=== PATIENT | female | born 1950 | race Caucasian/White ===

== ENCOUNTER → 2017-01-17 07:26 | Outpatient (CLI) | payer MEDICARE, OTHER ==
[2013-12-29 17:01] VITALS: BMI 27.7
[~2017-01-17 07:26] MED LIST: BABY ASPIRIN81 MG PO; CENTRUM SILVER1 TA2 PO; FLAGYL500 MG PO; GLUCOPHAGE500 MG PO; HUMALOG MI100 UNITS/; LAMICTAL25 MG PO; LANTUS SOL100 UNIT/1 SC; LEVAQUIN250 MG PO; LOPRESSOR25 MG PO; NEXIUM40 MG PO; NOVOLOG100 U/M1 SQ; OXYCODONE HCL5 MG PO; PROTONIX40 MG PO; TRILIPIX45 MG PO; VITAMIN D5000 UNIT OR
== END | disposition home or self-care (01) ==
LOC: D.CT 07:26
DX: R10.9 Unspecified abdominal pain (principal)

== ENCOUNTER → 2017-08-20 12:55 | Outpatient (CLI) | payer MEDICARE, OTHER ==
[2013-12-29 17:01] VITALS: BMI 27.7
== END | disposition home or self-care (01) ==
LOC: D.MAMMO 12:55
DX: Z12.31 Encounter for screening mammogram for malignant neoplasm of breast (principal)

== ENCOUNTER → 2017-11-06 16:57 | Outpatient (CLI) | payer MEDICARE, OTHER ==
[2013-12-29 17:01] VITALS: BMI 27.7
== END | disposition home or self-care (01) ==
LOC: D.MAMMO 10:30
DX: R92.8 Other abnormal and inconclusive findings on diagnostic imaging of breast (principal)

== ENCOUNTER 2018-04-01 13:13 | Inpatient (IN) | payer MEDICARE, OTHER ==
[~2018-04-01] VITALS: Ht 172.7 cm; Wt 83.0 kg
--- NOTE | ~2018-04-01 | HP ---
PATIENT: DAY SWAIN MEDICAL RECORD: [id number] ACCOUNT: [id number] LOCATION:[id number] : 46 ADMISSION DATE: 04/01/18 HISTORY AND PHYSICAL EXAMINATION REASON FOR ADMISSION: Right knee and left wrist pain. HISTORY OF PRESENT ILLNESS: The patient is a 68-year-old female with metabolic syndrome who fell at [employer] this afternoon onto her knee. She had no syncopal symptoms. Sustained immediate pain to her left wrist and right knee. The knee swelled immediately. She came to Emergency Room for this reason. Examination showed displaced fracture of the right patella, and a left nondisplaced radial head fracture. She has been seeing by Dr. Kenney from orthopedics and he recommends admission for medical clearance prior to ORIF of the patella. She denies syncope and otherwise she has felt well recently. PAST MEDICAL HISTORY: Remotely a lower GI bleed for ileitis, diverticulosis, metabolic syndrome, anemia, erosive gastritis, hyperlipidemia, coronary artery disease post-CABG grafting times 3 vessels 11/2012, hyperlipidemia, diabetic neuropathy. PAST SURGICAL HISTORY: Three-vessel CABG in 2012, lap cholecystectomy, left reverse shoulder repair for rotator cuff in 2013, history of depression and anemia. OTHER SURGICAL HISTORY: Hysterectomy, oophorectomy. FAMILY HISTORY: Father had diabetes and CAD. Mother with CAD and stroke syndrome. One sister with hypernephroma and hypertension. SOCIAL HISTORY: Lifelong nonsmoker, nondrinker. She is , retired. MEDICATIONS: NovoLog FlexPen per sliding scale, metformin 500 mg 2 tabs b.i.d., Toujeo SoloSTAR 25 units subQ in the morning and 50 units in the evening, Protonix 40 mg p.o. every morning, ranitidine 150 mg p.o. at bedtime, Nitrostat 0.4 sublingual p.r.n. chest pain, metoprolol succinate ER 25 mg p.o. b.i.d., multivitamin 1 daily. ALLERGIES: SHELLFISH. REVIEW OF SYSTEMS: CONSTITUTIONAL: No fever, fatigue, or weight change. HEENT: No recent new visual change, sinus congestion, sore throat or hearing deficit. RESPIRATORY: No SOB or cough. CARDIAC: No exertional rest chest pain, claudication, edema or palpitations. GASTROINTESTINAL: No nausea, vomiting, change in stools or blood per rectum. GENITOURINARY: Mild incontinence. No dysuria. GYNECOLOGIC: No vaginal bleeding. MUSCULOSKELETAL: Significant pain in her right patellar currently in her left wrist with any movement. She has lumbago intermittently without sciatica. INTEGUMENT: No rash or itching. PSYCHIATRIC: Denies depressed mood. PHYSICAL EXAMINATION: HISTORY AND PHYSICAL [id number] DAY SWAIN VITAL SIGNS: Her temperature is 97.6 Fahrenheit, blood pressure 130/48 with sat of 90% on room air, respiratory rate is 18. Height is 5 feet 8 inches. Weight is 183 pounds. GENERAL: The patient is alert and oriented. HEENT: Eyes are clear. Sclerae nonicteric. Oropharynx unremarkable. NECK: No bruits or masses. CHEST: Clear. Chest wall shows healed sternotomy scar. There is a scar over her left shoulder anteriorly. HEART: Regular rate without MGR. PMI appropriate. ABDOMEN: Soft, nontender: No organomegaly. GENITOURINARY: Deferred. EXTREMITIES: She has marked swelling and edema over the right patella with deformity. It hurts with any knee flexion. NEUROVASCULAR: Intact. Her left wrist shows soft tissue swelling over the distal radial head with neurovascularly intact. NEUROLOGIC: Oriented x3. Cranial nerves intact. Gait is not tested. Sensory; she has decreased sensation to touch and pinprick in bottoms of both feet. LABORATORY AND DIAGNOSTIC DATA: White count is 8600 with normal diff, H&H is 14.6 and 41.4 respectively. Chemistry shows a sodium of 137, potassium 4.1, BUN of 19, glucose of 281 nonfasting. Liver functions are AST and ALT mildly elevated at 94 and 133 respectively. INR is 1.03. EKG shows sinus rhythm, no acute changes. Imaging of the right knee shows displaced patellar fracture. Left breast shows nondisplaced radial head fracture. Portable chest x-ray shows postoperative changes in the left shoulder, otherwise unremarkable. ASSESSMENT: 1. Fall sustaining a displaced and comminuted right patellar fracture and left radial head fracture. 2. Diabetes mellitus, fair control. 3. History of atherosclerotic heart disease, clinically asymptomatic. 4. Hyperlipidemia. 5. Hypertension. 6. Hypothyroidism. 7. History of ileitis with GI bleeding, on anti-inflammatories. PLAN: The patient is admitted. Orthopedic consult. She is medically stable currently for intended surgery in the morning. Case discussed with the patient, family and Dr. Kenney. TRANSINT:[id number] Voice Confirmation ID: [id number] DOCUMENT ID: [id number] KENDELL FIGUEROA MD at 2215 CC: [id number] DICTATION DATE: 04/01/182147 STEREO OPERATOR: 04/01/182248 DIS IN 04/04/18 [place] [id number] [place] [id number]
[2018-04-01 16:20] VITALS: BP 130/48
[2018-04-01 16:35] LABS: BASOPHILS 0.5 % (0-2); EOSINOPHILS 1.2 % (0-7); HEMATOCRIT 41.4 % (36.0-48.0); HEMOGLOBIN 14.6 g/dL (12-16); IMMATURE GRANULOCYTES 0.1 % (0-5); LYMPHOCYTES 25.5 % (15-50); MCH 32.9 pg (26.0-34.0); MCHC 35.3 g/dL (31.0-37.0); MCV 93.2 fL (80.0-100.0); MEAN PLATELET VOLUME 13.1 fL (7.4-10.4); MONOCYTES 6.8 % (2-11); NEUTROPHILS 65.9 % (40-80); PLATELET COUNT 147 10x3/uL (130-400); RBC 4.44 10x6/uL (4.00-5.40); WBC 8.6 10x3/uL (4.8-10.8)
[2018-04-01 16:51] LABS: INR 1.03 (0.85-1.17); PROTIME 13.1 SECONDS (11.6-15.0)
[2018-04-01 17:02] LABS: ALBUMIN 3.7 g/dL (3.4-5.0); ALKALINE PHOSPHATASE 106 U/L (46-116); ALT (SGPT) 133 U/L (10-68); BILIRUBIN - TOTAL 0.84 mg/dL (0.2-1.3); CALC OSMOLALITY 285 mosm/kg (275-300); CALCIUM 9.2 mg/dL (8.5-10.1); CARBON DIOXIDE 28.4 mmol/L (21.0-32.0); CHLORIDE - SERUM 100 mmol/L (98-107); CREATININE - SERUM 0.8 mg/dL (0.6-1.3); POTASSIUM - SERUM 4.1 mmol/L (3.5-5.1); PROTEIN - SERUM 8.7 g/dL (6.4-8.2); SODIUM 137 mmol/L (136-145); UREA NITROGEN 19 mg/dL (7-18); eGFR NON AFRICAN AMERICAN 75 mL/min (90-120)
[2018-04-01 17:10] LABS: GLUCOSE 281 mg/dL (74-106)
[2018-04-01 19:27] VITALS: BP 167/82
[2018-04-02] VITALS (14 sets, daily range): BP systolic 137–198; BP diastolic 68–101; Ht 172.7 cm; Wt 83.0 kg
[2018-04-02 05:07] LABS: BASOPHILS 0.4 % (0-2); EOSINOPHILS 0.9 % (0-7); HEMATOCRIT 37.4 % (36.0-48.0); IMMATURE GRANULOCYTES 0.3 % (0-5); LYMPHOCYTES 31.6 % (15-50); MCH 32.3 pg (26.0-34.0); MCHC 34.8 g/dL (31.0-37.0); MEAN PLATELET VOLUME 12.7 fL (7.4-10.4); MONOCYTES 10.3 % (2-11); NEUTROPHILS 56.5 % (40-80); PLATELET COUNT 143 10x3/uL (130-400); RBC 4.02 10x6/uL (4.00-5.40); RDW 12.1 % (11.5-14.5)
[2018-04-02 05:32] LABS: CALC OSMOLALITY 277 mosm/kg (275-300); CALCIUM 8.7 mg/dL (8.5-10.1); CARBON DIOXIDE 29.1 mmol/L (21.0-32.0); CHLORIDE - SERUM 102 mmol/L (98-107); CREATININE - SERUM 0.6 mg/dL (0.6-1.3); POTASSIUM - SERUM 3.6 mmol/L (3.5-5.1); SODIUM 137 mmol/L (136-145); UREA NITROGEN 15 mg/dL (7-18); eGFR NON AFRICAN AMERICAN > 90 mL/min (90-120)
[2018-04-02 05:45] LABS: GLUCOSE 159 mg/dL (74-106)
[2018-04-02 07:43] LABS: APPEARANCE CLEAR (CLEAR); COLOR YELLOW (YELLOW)
[2018-04-02 07:44] LABS: BILIRUBIN NEGATIVE (NEGATIVE); GLUCOSE NEGATIVE (NEGATIVE); KETONE NEGATIVE (NEGATIVE); NITRITE NEGATIVE (NEGATIVE); PROTEIN NEGATIVE (NEGATIVE); SPECIFIC GRAVITY 1.015 (1.005-1.020); UROBILINOGEN NORMAL (NORMAL)
[2018-04-03 03:42] VITALS: BP 144/66
[2018-04-03 05:54] LABS: BASOPHILS 0.2 % (0-2); EOSINOPHILS 0.7 % (0-7); HEMOGLOBIN 12.5 g/dL (12-16); IMMATURE GRANULOCYTES 0.1 % (0-5); MCH 32.4 pg (26.0-34.0); MCHC 34.7 g/dL (31.0-37.0); MCV 93.3 fL (80.0-100.0); MEAN PLATELET VOLUME 12.7 fL (7.4-10.4); MONOCYTES 13.8 % (2-11); NEUTROPHILS 58.2 % (40-80); PLATELET COUNT 125 10x3/uL (130-400); RBC 3.86 10x6/uL (4.00-5.40); RDW 12.1 % (11.5-14.5); WBC 8.8 10x3/uL (4.8-10.8)
[2018-04-03 06:06] LABS: CALC OSMOLALITY 274 mosm/kg (275-300); CARBON DIOXIDE 29.9 mmol/L (21.0-32.0); CHLORIDE - SERUM 101 mmol/L (98-107); CREATININE - SERUM 0.6 mg/dL (0.6-1.3); GLUCOSE 168 mg/dL (74-106); POTASSIUM - SERUM 3.5 mmol/L (3.5-5.1); SODIUM 136 mmol/L (136-145); eGFR NON AFRICAN AMERICAN > 90 mL/min (90-120)
[2018-04-03 06:14] LABS: UREA NITROGEN 9 mg/dL (7-18)
[2018-04-03 08:43] VITALS: BP 183/85
[2018-04-03 19:40] VITALS: BP 168/77
[2018-04-03 23:35] VITALS: BP 155/77
[2018-04-04 04:12] VITALS: BP 184/82
[2018-04-04 06:24] LABS: BASOPHILS 0.4 % (0-2); EOSINOPHILS 1.3 % (0-7); HEMATOCRIT 34.2 % (36.0-48.0); HEMOGLOBIN 12.1 g/dL (12-16); IMMATURE GRANULOCYTES 0.3 % (0-5); LYMPHOCYTES 28.2 % (15-50); MCH 32.7 pg (26.0-34.0); MCHC 35.4 g/dL (31.0-37.0); MCV 92.4 fL (80.0-100.0); MEAN PLATELET VOLUME 12.3 fL (7.4-10.4); MONOCYTES 15.4 % (2-11); NEUTROPHILS 54.4 % (40-80); PLATELET COUNT 122 10x3/uL (130-400); RDW 12.1 % (11.5-14.5)
[2018-04-04 06:42] LABS: CALC OSMOLALITY 274 mosm/kg (275-300); CALCIUM 8.1 mg/dL (8.5-10.1); CARBON DIOXIDE 28.3 mmol/L (21.0-32.0); CHLORIDE - SERUM 101 mmol/L (98-107); CREATININE - SERUM 0.5 mg/dL (0.6-1.3); GLUCOSE 185 mg/dL (74-106); POTASSIUM - SERUM 3.7 mmol/L (3.5-5.1); SODIUM 136 mmol/L (136-145); UREA NITROGEN 8 mg/dL (7-18); eGFR NON AFRICAN AMERICAN > 90 mL/min (90-120)
[2018-04-04] MEDS ORDERED: ASPIRIN325 MG PO (08:31)
[2018-04-04] MEDS ORDERED: NORCO 7.5/325 T1 TA1 PO (08:31)
[2018-04-04 09:36] VITALS: BP 164/74
[2018-04-04 15:03] VITALS: BP 109/68; BP 109/681
[2018-04-04 18:07] VITALS: BP 160/63
[2018-04-04 21:17] VITALS: BP 121/58
[2018-04-05] MEDS ORDERED: LOVENOX40 MG/0.4 SC (06:24)
[2018-04-05] MEDS ORDERED: CATAPRES0.1 MG PO (06:25)
[2018-04-05] MEDS ORDERED: NITROSTAT0.4 MG SL (06:27)
[2018-04-05] MEDS ORDERED: ACETAMINOPHEN500 M1 PO (06:28)
[2018-04-05] MEDS ORDERED: COLACE100 MG PO (06:29)
[2018-04-05] MEDS ORDERED: PEPCID20 MG PO (06:29)
[2018-04-05] MEDS ORDERED: ZOFRAN4 MG PO (06:31)
[2018-04-05] MEDS ORDERED: MIRALAX17 GM PO (06:31)
[2018-04-05] MEDS ORDERED: LANTUS SOL100 UNIT/1 SC (06:33)
[2018-04-05] MEDS ORDERED: LANTUS INSULIN10 ML SC (06:34)
[2018-04-05] MEDS ORDERED: HUMULIN R100 U/ML SC (06:35)
== END 2018-04-04 20:00 | DRG 517 ==
LOC: D.ER 13:13 → D.MS 16:29 → D.EDHOLD 16:29 → D.MS 18:45
PROVIDERS: Emergency Medicine; Family Medicine; Orthopaedic Surgery
PROC: 0QSD04Z Reposition Right Patella with Internal Fixation Device, Open Approach (ICD-10-PCS; principal; 2018-04-02 13:30)
DX: S82.001A Unspecified fracture of right patella, initial encounter for closed fracture (principal); S52.122A Displaced fracture of head of left radius, initial encounter for closed fracture; W01.0XXA Fall on same level from slipping, tripping and stumbling without subsequent striking against object, initial encounter; Y92.22 Religious institution as the place of occurrence of the external cause; E03.9 Hypothyroidism, unspecified; E78.5 Hyperlipidemia, unspecified; M19.90 Unspecified osteoarthritis, unspecified site; K21.9 Gastro-esophageal reflux disease without esophagitis; E11.9 Type 2 diabetes mellitus without complications; I10 Essential (primary) hypertension; Z95.1 Presence of aortocoronary bypass graft; Z79.4 Long term (current) use of insulin

== ENCOUNTER 2018-04-04 19:59 | Inpatient (IN) | payer MEDICARE, OTHER ==
[~2018-04-04] VITALS: Ht 172.7 cm; Wt 83.0 kg
--- NOTE | ~2018-04-04 | RHP ---
PATIENT: DAY GASTON MEDICAL RECORD: [id number] ACCOUNT: [id number] LOCATION:[id number] : 46 ADMISSION DATE: 04/04/18 REHABILITATION HISTORY AND PHYSICAL EXAMINATION POST ADMISSION PHYSICIAN EXAMINATION DATE OF ADMISSION TO THE REHAB: 04/04/2018 ADMITTING DIAGNOSIS: Right comminuted displaced patellar fracture status post ORIF and also accompanying displaced intra-articular fracture of left radial head with accompanying elbow joint effusion. HISTORY OF PRESENT ILLNESS: The patient admitted to inpatient rehab with a right comminuted distal patellar fracture status post ORIF and acute displaced intraarticular fracture of the left radial head and accompanying elbow joint effusion with close treatment. This is a 68-year-old female patient with metabolic syndrome who fell at [employer] on 04/01/2018. She had immediate pain to her left wrist and right knee. The knee swelled immediately. She came to Emergency Room for this reason. On examination, showed a displaced fracture of the right patella, left elbow radial head fracture was also noted. She underwent an ORIF of the right patella on 04/02/18 and closed treatment to her left radial head fracture. She has had some postop complications to include postop blood loss anemia, hypertension, slight temperature elevation, increased pain, impaired mobility, self-care deficit. She lives at home with her and was completely independent with her mobility and ADL. She is currently set up for max assist for ADLs, moderate assist to total assist for mobility. She has had a sling to this left upper extremity, knee brace to her right lower extremity. She and her family planning to return home at her prior level of functioning or better if possible. COMORBIDITIES: Include a left humeral head fracture. She has got an acute displaced intraarticular fracture of the left radial head with accompanying elbow effusion, right comminuted displaced patellar fracture, radial head fracture that was closed, diabetes, hypertension, coronary artery disease, hyperlipidemia, osteoarthritis and fall. PAST MEDICAL HISTORY: Significant for lower GI bleed, diverticulosis, metabolic syndrome, anemia, erosive gastritis, hyperlipidemia, coronary artery disease, diabetic neuropathy, depression and anemia. PAST SURGICAL HISTORY: Includes 3-vessel coronary artery bypass grafting, laparoscopic cholecystectomy, reverse total shoulder, hysterectomy and oophorectomy. ALLERGIES: IODINE CONTRAST AND SHELLFISH. CURRENT MEDICATIONS: Include Protonix and she is on 40 mg daily, metoprolol 25 mg b.i.d. with meals, metformin 1000 mg b.i.d., Lantus 20 units subQ daily, enoxaparin 40 mg daily. She is on an electrolyte protocol at this time for replacement of her potassium and mag. She is on a glucose replacement protocol p.r.n. hypoglycemia, Zofran 4 mg q.4 hours p.r.n., Nitrostat 0.4 mg q.5 minutes p.r.n. chest pain, hydrocodone, she was on 7.5 on admission, but this had been discharged secondary to side effects. Catapres 0.1 mg q.4 hours p.r.n., Tylenol 5 mg q.4 hours p.r.n. fever. She is on a high resistance sliding scale with Humulin regular. She is on Lantus 45 units subQ q.h.s., Pepcid 20 mg q.h.s., HISTORY AND PHYSICAL [id number] BRYNN,DAY Colace 100 mg b.i.d., and polyethylene glycol 17 grams in 8 ounces of water daily. HABITS: No current alcohol or tobacco use. FAMILY HISTORY: Noncontributory. SOCIAL HISTORY: The patient hopes to return back home and get back to her prior level of functioning. REVIEW OF SYSTEMS: GENERAL: Denies weakness or fatigue. HEENT: Denies cold, cough, or congestion. CARDIOVASCULAR: Denies chest pain. PHYSICAL EXAMINATION: VITAL SIGNS: Stable, afebrile. GENERAL: A somewhat obese female, in no distress on exam. HEENT: Normocephalic and atraumatic. Mucosa moist. NECK: Supple. No lymphadenopathy. LUNGS: Clear at this time. HEART: Regular rate and rhythm. ABDOMEN: Benign. EXTREMITIES: She does have her knee and lower leg enclosed in an immobilizer at this time and her arm in a sling. LABORATORY DATA: Admit white count was 8.4, H&H 12 and 36, and platelet count was noted to be 157. Her admit chemistry showed a sodium 136, potassium 3.9, BUN and creatinine of 12 and 0.6 and blood sugar was noted to be 187. ASSESSMENT: This is a 68-year-old female patient admitted to rehab with a working diagnosis of orthopedic complications secondary to a patellar fracture that required open reduction internal fixation and an arm fracture, which required closed manipulation. The patient continues to make improvement. We instituted the following multidisciplinary therapies including, but not limited to physical, occupational, respiratory, speech, nutritional services, prosthetics and orthotics. Given her complex medical condition and risk for more complications, rehabilitation services cannot be provided at a low level of care such as skilled nurse facility. PLAN: 1. Admit to [facility] for intensive inpatient therapy to include the following disciplines: A. Physical therapy to improve gait, all transfer skills and bed mobility to a modified independent level. B. Occupational therapy to improve activities of daily living to a modified independent level. C. Case management to assist with discharge planning and placement options. D. Nutrition to assist with nutritional needs. E. Rehabilitation nursing to assist in monitoring the patient's underlying medical conditions and to assist with any type of bowel or bladder management. 2. The patient's current medication and medical care will be continued. 3. The patient will be placed on standard fall precautions. 4. The patient's estimated length of stay is approximately 7-10 days. 5. We will discuss this patient during care team staff meeting this week. HISTORY AND PHYSICAL [id number] DAY GASTON TRANSINT:[id number] Voice Confirmation ID: [id number] DOCUMENT ID: [id number] ADDENDUM: Ms. Gaston's date of admission to the Rehab was 04/04/2018. The rehabilitation history and physical examination post admission examination was actually dictated on 04/05/2018 but due to society reporter service technical problem could not be typed and the report was redictated. Dictation ID #[id number] TRESSA notes whether there has been none or any medical/functional change since admission: - No change since preadmission screen. TRESSA attests patient continues to be appropriate for IRF: - Continues to be appropriate. MALCOLM SETHI MD at 1757 CC: [id number] DICTATION DATE: 04/08/18 1013 RETORT COOLER: 04/08/18 1140 DIS IN 04/11/18 [facility] [address] [place] [id number]
[~2018-04-04 19:59] MED LIST changes: +ASPIRIN325 MG PO; +NORCO 7.5/325 T1 TA1 PO
[2018-04-04 20:05] VITALS: BP 154/75; BMI 27.8
[2018-04-04 20:48] VITALS: BP 154/75
[2018-04-05] MEDS ORDERED: LOVENOX40 MG/0.4 SC (06:24)
[2018-04-05] MEDS ORDERED: CATAPRES0.1 MG PO (06:25)
[2018-04-05] MEDS ORDERED: NITROSTAT0.4 MG SL (06:27)
[2018-04-05] MEDS ORDERED: ACETAMINOPHEN500 M1 PO (06:28)
[2018-04-05] MEDS ORDERED: COLACE100 MG PO (06:29)
[2018-04-05] MEDS ORDERED: PEPCID20 MG PO (06:29)
[2018-04-05] MEDS ORDERED: MIRALAX17 GM PO (06:31)
[2018-04-05] MEDS ORDERED: ZOFRAN4 MG PO (06:31)
[2018-04-05] MEDS ORDERED: LANTUS SOL100 UNIT/1 SC (06:33)
[2018-04-05 06:34] LABS: BASOPHILS 0.6 % (0-2); EOSINOPHILS 1.7 % (0-7); HEMATOCRIT 36.8 % (36.0-48.0); HEMOGLOBIN 12.8 g/dL (12-16); IMMATURE GRANULOCYTES 0.2 % (0-5); LYMPHOCYTES 31.5 % (15-50); MCH 32.3 pg (26.0-34.0); MCHC 34.8 g/dL (31.0-37.0); MCV 92.9 fL (80.0-100.0); MEAN PLATELET VOLUME 12.5 fL (7.4-10.4); MONOCYTES 13.8 % (2-11); NEUTROPHILS 52.2 % (40-80); PLATELET COUNT 157 10x3/uL (130-400); RBC 3.96 10x6/uL (4.00-5.40); WBC 8.4 10x3/uL (4.8-10.8)
[2018-04-05] MEDS ORDERED: LANTUS INSULIN10 ML SC (06:34)
[2018-04-05] MEDS ORDERED: HUMULIN R100 U/ML SC (06:35)
[2018-04-05 06:41] LABS: CALC OSMOLALITY 276 mosm/kg (275-300); CALCIUM 8.8 mg/dL (8.5-10.1); CARBON DIOXIDE 27.1 mmol/L (21.0-32.0); CHLORIDE - SERUM 101 mmol/L (98-107); CREATININE - SERUM 0.6 mg/dL (0.6-1.3); GLUCOSE 187 mg/dL (74-106); POTASSIUM - SERUM 3.9 mmol/L (3.5-5.1); SODIUM 136 mmol/L (136-145); UREA NITROGEN 12 mg/dL (7-18); eGFR NON AFRICAN AMERICAN > 90 mL/min (90-120)
[2018-04-05 08:02] VITALS: BP 156/79
[2018-04-05 09:28] VITALS: Ht 172.7 cm; Wt 83.0 kg
[2018-04-05 16:22] VITALS: BP 146/65
[2018-04-06 12:01] VITALS: BP 152/71
[2018-04-06 17:46] VITALS: BP 167/73
[2018-04-07 04:59] LABS: BASOPHILS 0.5 % (0-2); EOSINOPHILS 2.8 % (0-7); HEMATOCRIT 35.3 % (36.0-48.0); HEMOGLOBIN 12.2 g/dL (12-16); IMMATURE GRANULOCYTES 0.2 % (0-5); LYMPHOCYTES 36.3 % (15-50); MCH 32.4 pg (26.0-34.0); MCHC 34.6 g/dL (31.0-37.0); MCV 93.6 fL (80.0-100.0); MEAN PLATELET VOLUME 12.1 fL (7.4-10.4); MONOCYTES 13.1 % (2-11); NEUTROPHILS 47.1 % (40-80); PLATELET COUNT 173 10x3/uL (130-400); RBC 3.77 10x6/uL (4.00-5.40)
[2018-04-07 05:35] LABS: CALC OSMOLALITY 275 mosm/kg (275-300); CALCIUM 8.4 mg/dL (8.5-10.1); CHLORIDE - SERUM 102 mmol/L (98-107); CREATININE - SERUM 0.7 mg/dL (0.6-1.3); GLUCOSE 161 mg/dL (74-106); POTASSIUM - SERUM 3.8 mmol/L (3.5-5.1); SODIUM 136 mmol/L (136-145); UREA NITROGEN 15 mg/dL (7-18); eGFR NON AFRICAN AMERICAN 88 mL/min (90-120)
[2018-04-07 07:00] VITALS: BP 184/80
[2018-04-07 20:00] VITALS: BP 173/73
[2018-04-08 08:00] VITALS: BP 168/79
[2018-04-08 20:15] VITALS: BP 142/62
[2018-04-09 08:00] VITALS: BP 189/80
[2018-04-09 08:39] LABS: BASOPHILS 0.5 % (0-2); EOSINOPHILS 5.4 % (0-7); HEMATOCRIT 36.6 % (36.0-48.0); HEMOGLOBIN 12.4 g/dL (12-16); IMMATURE GRANULOCYTES 0.2 % (0-5); LYMPHOCYTES 37.4 % (15-50); MCHC 33.9 g/dL (31.0-37.0); MCV 94.3 fL (80.0-100.0); MEAN PLATELET VOLUME 11.8 fL (7.4-10.4); MONOCYTES 9.1 % (2-11); NEUTROPHILS 47.4 % (40-80); RBC 3.88 10x6/uL (4.00-5.40); WBC 5.5 10x3/uL (4.8-10.8)
[2018-04-09 08:49] LABS: PLATELET COUNT 258 10x3/uL (130-400)
[2018-04-09 08:53] LABS: CALC OSMOLALITY 279 mosm/kg (275-300); CALCIUM 8.8 mg/dL (8.5-10.1); CARBON DIOXIDE 31.6 mmol/L (21.0-32.0); CHLORIDE - SERUM 102 mmol/L (98-107); CREATININE - SERUM 0.6 mg/dL (0.6-1.3); GLUCOSE 140 mg/dL (74-106); POTASSIUM - SERUM 3.9 mmol/L (3.5-5.1); SODIUM 139 mmol/L (136-145); UREA NITROGEN 12 mg/dL (7-18); eGFR NON AFRICAN AMERICAN > 90 mL/min (90-120)
[2018-04-09 19:00] VITALS: BP 176/70
[2018-04-10 08:00] VITALS: BP 184/76
[2018-04-10 19:00] VITALS: BP 154/69
[2018-04-11 07:03] LABS: BASOPHILS 0.4 % (0-2); EOSINOPHILS 3.1 % (0-7); HEMATOCRIT 36.7 % (36.0-48.0); HEMOGLOBIN 12.6 g/dL (12-16); IMMATURE GRANULOCYTES 0.3 % (0-5); LYMPHOCYTES 34.8 % (15-50); MCH 32.5 pg (26.0-34.0); MCHC 34.3 g/dL (31.0-37.0); MCV 94.6 fL (80.0-100.0); MEAN PLATELET VOLUME 11.4 fL (7.4-10.4); MONOCYTES 9.5 % (2-11); NEUTROPHILS 51.9 % (40-80); PLATELET COUNT 290 10x3/uL (130-400); RBC 3.88 10x6/uL (4.00-5.40); RDW 12.2 % (11.5-14.5)
[2018-04-11 07:12] LABS: WBC 7.5 10x3/uL (4.8-10.8)
[2018-04-11 07:31] LABS: CALC OSMOLALITY 276 mosm/kg (275-300); CARBON DIOXIDE 29.4 mmol/L (21.0-32.0); CHLORIDE - SERUM 102 mmol/L (98-107); CREATININE - SERUM 0.5 mg/dL (0.6-1.3); GLUCOSE 75 mg/dL (74-106); POTASSIUM - SERUM 3.9 mmol/L (3.5-5.1); SODIUM 139 mmol/L (136-145); UREA NITROGEN 13 mg/dL (7-18); eGFR NON AFRICAN AMERICAN > 90 mL/min (90-120)
[2018-04-11 08:00] VITALS: BP 175/88
[2018-04-11] MEDS ORDERED: NORCO 7.5/325 T1 TA1 PO (08:37)
== END 2018-04-11 13:05 | disposition home or self-care (01) | DRG 561 ==
LOC: D.REHAB 19:59
PROVIDERS: Emergency Medicine
DX: S82.001D Unspecified fracture of right patella, subsequent encounter for closed fracture with routine healing (principal); S52.122D Displaced fracture of head of left radius, subsequent encounter for closed fracture with routine healing; W19.XXXD Unspecified fall, subsequent encounter; E11.65 Type 2 diabetes mellitus with hyperglycemia; I10 Essential (primary) hypertension; I25.10 Atherosclerotic heart disease of native coronary artery without angina pectoris; E78.5 Hyperlipidemia, unspecified; M19.90 Unspecified osteoarthritis, unspecified site; E88.81 Metabolic syndrome and other insulin resistance

== ENCOUNTER → 2020-02-09 08:30 | Outpatient (CLI) | payer MEDICARE, OTHER ==
[2018-04-05 09:28] VITALS: BMI 27.8
[~2020-02-09 08:30] MED LIST changes: +ACETAMINOPHEN500 M1 PO; +CATAPRES0.1 MG PO; +COLACE100 MG PO; +HUMULIN R100 U/ML SC; +LANTUS INSULIN10 ML SC; +LOVENOX40 MG/0.4 SC; +MIRALAX17 GM PO; +NITROSTAT0.4 MG SL; +PEPCID20 MG PO; +ZOFRAN4 MG PO
== END | disposition home or self-care (01) ==
LOC: D.MRI 08:30
PROVIDERS: ATTEND Family Medicine
DX: M46.1 Sacroiliitis, not elsewhere classified (principal)

== ENCOUNTER 2020-02-29 19:00 | Outpatient (CLI) | payer MEDICARE, OTHER ==
[2018-04-05 09:28] VITALS: BMI 27.8
== END 2020-02-29 23:59 | disposition home or self-care (01) ==
LOC: D.MAMMO 19:00
PROVIDERS: ATTEND Family Medicine
DX: Z12.31 Encounter for screening mammogram for malignant neoplasm of breast (principal)

== ENCOUNTER → 2020-05-16 09:49 | Outpatient (CLI) | payer MEDICARE, OTHER ==
[2018-04-05 09:28] VITALS: BMI 27.8
== END | disposition home or self-care (01) ==
LOC: D.US 09:49
PROVIDERS: ATTEND Family Medicine
DX: R92.8 Other abnormal and inconclusive findings on diagnostic imaging of breast (principal)

== ENCOUNTER 2020-07-04 20:11 | Emergency (ER) | payer MEDICARE, OTHER ==
[~2020-07-04] VITALS: Ht 172.7 cm; Wt 84.1 kg
[2020-07-04 20:22] VITALS: BP 196/120; Ht 172.7 cm; Wt 84.1 kg
[2020-07-04] MEDS ORDERED: COZAAR100 MG PO (20:24)
== END 2020-07-04 21:54 | disposition home or self-care (01) ==
LOC: D.ER 20:11
DX: R04.0 Epistaxis (principal); E11.9 Type 2 diabetes mellitus without complications; Z79.4 Long term (current) use of insulin; I10 Essential (primary) hypertension

== ENCOUNTER → 2020-11-14 23:49 | Outpatient (CLI) | payer MEDICARE, OTHER ==
[2020-07-04 20:22] VITALS: BMI 28.1
[~2020-11-14 23:49] MED LIST changes: +COZAAR100 MG PO
== END | disposition home or self-care (01) ==
LOC: D.MAMMO 10:00
PROVIDERS: ATTEND Family Medicine
DX: R92.8 Other abnormal and inconclusive findings on diagnostic imaging of breast (principal)